=== PATIENT | male | born 1970 | race Caucasian/White ===

== ENCOUNTER 2021-05-17 19:54 | Emergency (ER) | payer SELFPAY ==
[~2021-05-17] VITALS: Ht 170.2 cm; Wt 155.6 kg
[2021-05-17] MEDS ORDERED: FENTANYL CITRATE/PF 100MCG/2 ML INJ IV PRN (20:30)
[2021-05-17] MEDS ORDERED: FENTANYL CITRATE/PF 100MCG/2 ML INJ ONE (20:34)
[2021-05-17] MEDS ORDERED: FENTANYL CITRATE/PF 100MCG/2 ML INJ IJ ONE (20:45)
[2021-05-17] MEDS ORDERED: KETOROLAC TROMETHAMINE 30 MG/ML VIAL IV STA (20:46)
[2021-05-17] MEDS ORDERED: KETOROLAC TROMETHAMINE 30 MG/ML VIAL ONE (20:48)
[2021-05-17] MEDS ORDERED: ULTRAM50 MG PO (22:09)
== END 2021-05-17 22:39 | disposition home or self-care (01) ==
LOC: ER 20:18
DX: M24.412 Recurrent dislocation, left shoulder (principal)
CPT/HCPCS: 73030; J1885; J3010

== ENCOUNTER 2021-06-03 17:41 | Inpatient (IN) | payer SELFPAY ==
[~2021-06-03] VITALS: Ht 170.2 cm; Wt 155.6 kg
[~2021-06-03 17:41] MED LIST: ULTRAM50 MG PO
[2021-06-03 19:25] LABS: BASOPHILS # (AUTO) 0.1 (0.0-0.1); EOSINOPHILS # (AUTO) 0.3 (0.0-0.4); EOSINOPHILS % 2.8 % (0.0-6.0); HEMATOCRIT 39.6 % (38.2-49.6); HEMOGLOBIN 12.7 g/dL (14.0-18.0); LYMPHOCYTES # (AUTO) 1.9 (1.0-3.2); MEAN CORPUSCULAR HEMOGLOBIN 30.6 pg (28-32); MEAN CORPUSCULAR HGB CONC 32.1 g/dL (31-35); MEAN CORPUSCULAR VOLUME 95.4 fL (81-99); MONOCYTES # (AUTO) 0.9 (0.2-0.8); MONOCYTES % 7.8 % (4.4-11.3); NEUTROPHILS # (AUTO) 7.6 (2.1-6.9); NEUTROPHILS % 66.7 % (38.7-80.0); PLATELET COUNT 321 x10e3/uL (140-360); RED BLOOD COUNT 4.15 x10e6/uL (4.3-5.7); RED CELL DISTRIBUTION WIDTH 13.9 % (11.7-14.4)
[2021-06-03 19:49] LABS: ALBUMIN 3.7 g/dL (3.5-5.0); ALBUMIN/GLOBULIN RATIO 0.9 (0.8-2.0); ANION GAP 17.6 mmol/L (8-16); CALCIUM 9.1 mg/dL (8.4-10.2); CREATININE, SERUM 1.11 mg/dL (0.72-1.25); POTASSIUM 4.6 mmol/L (3.5-5.1)
[2021-06-03] MEDS ORDERED: ONDANSETRON HCL INJ 2MG/ML 2ML 2 MG/ML VIAL IV PRN (20:45)
[2021-06-03] MEDS ORDERED: ACETAMINOPHEN 325 MG TAB PO PRN (20:45)
[2021-06-03] MEDS: CEFEPIME 1 GM in SODIUM CHLORIDE 0.9% 50ML 50 ML IV SCH ×2 (22:00→22:15)
[2021-06-03] MEDS: Vancomycin IV 1 GM in SODIUM CHLORIDE 0.9% 250ML 250 ML IV SCH (23:13)
[2021-06-03] MEDS: MORPHINE SULFATE INJ 4 MG/ML INJ 1ML IV PRN (23:13)
[2021-06-04] VITALS (9 sets, daily range): BP systolic 121–165; BP diastolic 52–93
[2021-06-04] MEDS ORDERED: PHENAZOPYRIDINE HCL 100 MG TAB PO PRN (00:15)
[2021-06-04] MEDS ORDERED: BENZONATATE 100 MG CAP PO PRN (00:15)
[2021-06-04] MEDS ORDERED: KETOROLAC TROMETHAMINE 30 MG/ML VIAL IV PRN (00:15)
[2021-06-04] MEDS ORDERED: LIDOCAINE 4% PATCH TP PRN (00:15)
[2021-06-04] MEDS ORDERED: DIPHENHYDRAMINE HCL 25 MG CAP PO PRN (00:15)
[2021-06-04] MEDS ORDERED: SIMETHICONE 80 MG CHEW PO PRN (00:15)
[2021-06-04] MEDS ORDERED: ALBUTEROL/IPRATROPIUM 3 ML NEB NEB PRN (00:15)
[2021-06-04] MEDS ORDERED: MELATONIN 5 MG TABLET PO PRN (00:15)
[2021-06-04] MEDS ORDERED: POTASSIUM CHLORIDE 20 MEQ TAB CR PO PRN (00:15)
[2021-06-04] MEDS ORDERED: DOCUSATE SODIUM 100 MG CAP PO PRN (00:15)
[2021-06-04] MEDS ORDERED: HYDRALAZINE HCL 20 MG/ML VIAL IV PRN (00:15)
[2021-06-04] MEDS ORDERED: DEXTROSE 50% SYRINGE 50 ML IV PRN (00:15)
[2021-06-04] MEDS: SODIUM CHLORIDE 0.9% 1000ML 1,000 ML IV SCH ×2 (01:14→07:47)
[2021-06-04] MEDS: ONDANSETRON HCL INJ 2MG/ML 2ML 2 MG/ML VIAL IV PRN (03:27)
[2021-06-04] MEDS: MORPHINE SULFATE INJ 4 MG/ML INJ 1ML IV PRN ×2 (03:27→07:40)
[2021-06-04] MEDS: ACETAMINOPHEN 325 MG TAB PO PRN ×2 (03:36→17:40)
[2021-06-04] MEDS: CEFEPIME 1 GM in SODIUM CHLORIDE 0.9% 50ML 50 ML IV SCH ×3 (05:19→21:18)
[2021-06-04] MEDS: Vancomycin IV 1 GM in SODIUM CHLORIDE 0.9% 250ML 250 ML IV SCH ×2 (07:00→19:00)
[2021-06-04] MEDS: PANTOPRAZOLE SOD 40 MG TABEC PO SCH (07:30)
[2021-06-04 09:10] LABS: BASOPHILS # (AUTO) 0.2 (0.0-0.1); BASOPHILS % 1.5 % (0.0-1.0); EOSINOPHILS # (AUTO) 0.3 (0.0-0.4); EOSINOPHILS % 3.4 % (0.0-6.0); HEMATOCRIT 38.1 % (38.2-49.6); HEMOGLOBIN 12.2 g/dL (14.0-18.0); LYMPHOCYTES # (AUTO) 1.9 (1.0-3.2); LYMPHOCYTES % 19.6 % (18.0-39.1); MEAN CORPUSCULAR HEMOGLOBIN 30.7 pg (28-32); MEAN CORPUSCULAR VOLUME 95.7 fL (81-99); MONOCYTES % 10.1 % (4.4-11.3); NEUTROPHILS # (AUTO) 5.7 (2.1-6.9); NEUTROPHILS % 57.8 % (38.7-80.0); PLATELET COUNT 299 x10e3/uL (140-360); RED BLOOD COUNT 3.98 x10e6/uL (4.3-5.7); RED CELL DISTRIBUTION WIDTH 13.4 % (11.7-14.4)
[2021-06-04 09:36] LABS: ALBUMIN 3.5 g/dL (3.5-5.0); ANION GAP 12.1 mmol/L (8-16); CALCIUM 8.7 mg/dL (8.4-10.2); POTASSIUM 4.1 mmol/L (3.5-5.1)
[2021-06-04] MEDS ORDERED: PROAIR DIGIHAL90 MCG (12:15)
[2021-06-04] MEDS ORDERED: METHOCARBAMOL750 MG PO (12:25)
[2021-06-04] MEDS ORDERED: TERBINAFINE HC250 MG PO (12:25)
[2021-06-04] MEDS ORDERED: ABILIFY5 MG PO (12:25)
[2021-06-04] MEDS ORDERED: LISINOPRIL10 MG PO (12:25)
[2021-06-04] MEDS ORDERED: MINIPRESS1 MG PO (12:25)
[2021-06-04] MEDS ORDERED: KEPPRA250 MG PO (12:25)
[2021-06-04] MEDS ORDERED: ALBUTEROL SULFATE HFA 8GM INHALATION AEROSOL INH PRN (12:30)
[2021-06-04] MEDS: LISINOPRIL 10 MG TAB PO SCH (13:18)
[2021-06-04] MEDS: TERBINAFINE 250 MG TAB PO SCH (13:18)
[2021-06-04] MEDS: FUROSEMIDE 20 MG TAB PO SCH (13:18)
[2021-06-04] MEDS: KETOROLAC TROMETHAMINE 30 MG/ML VIAL IV SCH ×3 (13:18→23:48)
[2021-06-04] MEDS: ARIPIPRAZOLE 5 MG TABLET PO SCH (13:18)
[2021-06-04] MEDS: ENOXAPARIN SOD INJ 40 MG/0.4 ML SYR SC SCH (17:56)
[2021-06-04] MEDS: LEVETIRACETAM 500 MG TAB PO SCH (17:56)
[2021-06-04] MEDS: PRAZOSIN HCL 1 MG CAP PO SCH (20:39)
[2021-06-05 01:29] VITALS: BP 108/53
[2021-06-05] MEDS ORDERED: SODIUM CHLORIDE 0.9% 250ML 250 ML ONE (03:09)
[2021-06-05 04:09] VITALS: BP 95/52
[2021-06-05 05:14] LABS: BASOPHILS # (AUTO) 0.1 (0.0-0.1); BASOPHILS % 1.2 % (0.0-1.0); EOSINOPHILS # (AUTO) 0.3 (0.0-0.4); EOSINOPHILS % 3.3 % (0.0-6.0); HEMATOCRIT 35.9 % (38.2-49.6); HEMOGLOBIN 11.6 g/dL (14.0-18.0); LYMPHOCYTES # (AUTO) 1.7 (1.0-3.2); LYMPHOCYTES % 19.8 % (18.0-39.1); MEAN CORPUSCULAR HEMOGLOBIN 30.2 pg (28-32); MEAN CORPUSCULAR HGB CONC 32.3 g/dL (31-35); MEAN CORPUSCULAR VOLUME 93.5 fL (81-99); MONOCYTES # (AUTO) 0.8 (0.2-0.8); MONOCYTES % 9.2 % (4.4-11.3); NEUTROPHILS % 57.5 % (38.7-80.0); PLATELET COUNT 276 x10e3/uL (140-360); RED BLOOD COUNT 3.84 x10e6/uL (4.3-5.7)
[2021-06-05] MEDS: CEFEPIME 1 GM in SODIUM CHLORIDE 0.9% 50ML 50 ML IV SCH ×3 (05:20→21:52)
[2021-06-05] MEDS: KETOROLAC TROMETHAMINE 30 MG/ML VIAL IV SCH ×3 (05:20→17:19)
[2021-06-05 05:37] LABS: ANION GAP 11.9 mmol/L (8-16); CALCIUM 8.3 mg/dL (8.4-10.2); CREATININE, SERUM 1.04 mg/dL (0.72-1.25); POTASSIUM 3.9 mmol/L (3.5-5.1)
[2021-06-05] MEDS: Vancomycin IV 1 GM in SODIUM CHLORIDE 0.9% 250ML 250 ML IV SCH ×2 (07:00→19:00)
[2021-06-05] MEDS: LEVETIRACETAM 500 MG TAB PO SCH ×2 (08:35→16:19)
[2021-06-05] MEDS: FUROSEMIDE 20 MG TAB PO SCH (08:35)
[2021-06-05] MEDS: TERBINAFINE 250 MG TAB PO SCH (08:35)
[2021-06-05] MEDS: ARIPIPRAZOLE 5 MG TABLET PO SCH (08:35)
[2021-06-05] MEDS: PANTOPRAZOLE SOD 40 MG TABEC PO SCH (08:35)
[2021-06-05] MEDS: LISINOPRIL 10 MG TAB PO SCH (08:37)
[2021-06-05 08:58] VITALS: BP 140/70
[2021-06-05] MEDS ORDERED: LEVETIRACETAM PO SCH (09:00)
[2021-06-05 11:55] VITALS: BP 137/65
[2021-06-05] MEDS: ONDANSETRON HCL INJ 2MG/ML 2ML 2 MG/ML VIAL IV PRN (14:01)
[2021-06-05] MEDS: MORPHINE SULFATE INJ 4 MG/ML INJ 1ML IV PRN (14:01)
[2021-06-05] MEDS: ENOXAPARIN SOD INJ 40 MG/0.4 ML SYR SC SCH (16:19)
[2021-06-05 19:25] VITALS: BP 144/79
[2021-06-05] MEDS: PRAZOSIN HCL 1 MG CAP PO SCH (20:48)
[2021-06-05 22:00] VITALS: BP 144/79
[2021-06-06] VITALS (8 sets, daily range): BP systolic 118–159; BP diastolic 53–96
[2021-06-06] MEDS: CEFEPIME 1 GM in SODIUM CHLORIDE 0.9% 50ML 50 ML IV SCH ×4 (00:41→22:44)
[2021-06-06] MEDS: ACETAMINOPHEN 325 MG TAB PO PRN ×2 (01:54→20:43)
[2021-06-06] MEDS ORDERED: KETOROLAC TROMETHAMINE 30 MG/ML VIAL ONE (03:04)
[2021-06-06] MEDS: KETOROLAC TROMETHAMINE 30 MG/ML VIAL IV SCH ×5 (03:17→18:00)
[2021-06-06] MEDS: Vancomycin IV 1 GM in SODIUM CHLORIDE 0.9% 250ML 250 ML IV SCH ×2 (06:31→18:00)
[2021-06-06] MEDS: LEVETIRACETAM 500 MG TAB PO SCH ×2 (09:33→17:04)
[2021-06-06] MEDS: ARIPIPRAZOLE 5 MG TABLET PO SCH (09:33)
[2021-06-06] MEDS: PANTOPRAZOLE SOD 40 MG TABEC PO SCH (09:33)
[2021-06-06] MEDS: FUROSEMIDE 20 MG TAB PO SCH (09:33)
[2021-06-06] MEDS: LISINOPRIL 10 MG TAB PO SCH (09:33)
[2021-06-06] MEDS: TERBINAFINE 250 MG TAB PO SCH (09:33)
[2021-06-06] MEDS: ENOXAPARIN SOD INJ 40 MG/0.4 ML SYR SC SCH (17:04)
[2021-06-06] MEDS: ONDANSETRON HCL INJ 2MG/ML 2ML 2 MG/ML VIAL IV PRN (20:43)
[2021-06-06] MEDS: MORPHINE SULFATE INJ 4 MG/ML INJ 1ML IV PRN (20:43)
[2021-06-06] MEDS: PRAZOSIN HCL 1 MG CAP PO SCH (21:04)
[2021-06-07] VITALS: BP 133/61
[2021-06-07] MEDS: CEFEPIME 1 GM in SODIUM CHLORIDE 0.9% 50ML 50 ML IV SCH (05:09)
[2021-06-07] MEDS: KETOROLAC TROMETHAMINE 30 MG/ML VIAL IV SCH ×4 (05:10→12:06)
[2021-06-07 05:14] VITALS: BP 139/80
[2021-06-07 06:50] LABS: ANION GAP 11.8 mmol/L (8-16); CALCIUM 8.3 mg/dL (8.4-10.2); CREATININE, SERUM 1.01 mg/dL (0.72-1.25); POTASSIUM 3.8 mmol/L (3.5-5.1)
[2021-06-07] MEDS: LISINOPRIL 10 MG TAB PO SCH (08:00)
[2021-06-07] MEDS: Vancomycin IV 1 GM in SODIUM CHLORIDE 0.9% 250ML 250 ML IV SCH (08:02)
[2021-06-07] MEDS: PANTOPRAZOLE SOD 40 MG TABEC PO SCH (08:02)
[2021-06-07] MEDS: FUROSEMIDE 20 MG TAB PO SCH (08:03)
[2021-06-07] MEDS: LEVETIRACETAM 500 MG TAB PO SCH (08:03)
[2021-06-07] MEDS: ARIPIPRAZOLE 5 MG TABLET PO SCH (08:03)
[2021-06-07] MEDS: TERBINAFINE 250 MG TAB PO SCH (08:03)
[2021-06-07 08:11] VITALS: BP 137/89
[2021-06-07 08:32] VITALS: BP 137/89
[2021-06-07] MEDS ORDERED: DOXYCYCLINE HY100 MG PO (09:24)
[2021-06-07] MEDS ORDERED: ONDANSETRON HCL 4 MG ORAL DISINTEGRATING TAB PO PRN (11:45)
[2021-06-07 11:51] VITALS: BP 161/90
== END 2021-06-07 14:09 | disposition home or self-care (01) | DRG 603 ==
LOC: ER 18:58 → ERHOLD 21:03 → MED/SURG2 06-04 00:26
PROVIDERS: ADMIT Internal Medicine; ATTEND Internal Medicine
DX: L03.115 Cellulitis of right lower limb (principal); Z68.43 Body mass index [BMI] 50.0-59.9, adult; I10 Essential (primary) hypertension; E66.01 Morbid (severe) obesity due to excess calories; F32.9 Major depressive disorder, single episode, unspecified; F17.220 Nicotine dependence, chewing tobacco, uncomplicated; Z88.4 Allergy status to anesthetic agent; Z88.0 Allergy status to penicillin; E87.8 Other disorders of electrolyte and fluid balance, not elsewhere classified; G40.909 Epilepsy, unspecified, not intractable, without status epilepticus; Z20.822 Contact with and (suspected) exposure to COVID-19
CPT/HCPCS: 36415; 80048; 80053; 80202; 83605; 85025; 85651; 86039; 86140; 86431; 87040; 93970; 93971; 94660; 99284; J0692; J1650; J1885; J2270; J2405; J3370; J7030; J7050; U0002

== ENCOUNTER 2021-07-06 14:39 | Inpatient (IN) | payer SELFPAY ==
[~2021-07-06] VITALS: Ht 175.3 cm; Wt 155.6 kg
[~2021-07-06 14:39] MED LIST changes: +ABILIFY5 MG PO; +DOXYCYCLINE HY100 MG PO; +KEPPRA250 MG PO; +LISINOPRIL10 MG PO; +METHOCARBAMOL750 MG PO; +MINIPRESS1 MG PO; +PROAIR DIGIHAL90 MCG; +TERBINAFINE HC250 MG PO
[2021-07-06] MEDS ORDERED: Vancomycin IV 1 GM in SODIUM CHLORIDE 0.9% 250ML 250 ML IV ONE (15:00)
[2021-07-06] MEDS ORDERED: SODIUM CHLORIDE 0.9% 1000ML 1,000 ML IV SCH (15:00)
[2021-07-06] MEDS ORDERED: PIPERACILLIN/TAZOBACTAM 4.5 GM in SODIUM CHLORIDE 0.9% 100 ML IV ONE (15:00)
[2021-07-06 15:13] LABS: BASOPHILS # (AUTO) 0.1 (0.0-0.1); BASOPHILS % 0.6 % (0.0-1.0); EOSINOPHILS # (AUTO) 0.2 (0.0-0.4); EOSINOPHILS % 1.7 % (0.0-6.0); HEMATOCRIT 38.2 % (38.2-49.6); HEMOGLOBIN 12.4 g/dL (14.0-18.0); LYMPHOCYTES # (AUTO) 1.4 (1.0-3.2); LYMPHOCYTES % 12.3 % (18.0-39.1); MEAN CORPUSCULAR HEMOGLOBIN 30.5 pg (28-32); MEAN CORPUSCULAR HGB CONC 32.5 g/dL (31-35); MEAN CORPUSCULAR VOLUME 94.1 fL (81-99); MONOCYTES # (AUTO) 1.2 (0.2-0.8); MONOCYTES % 10.2 % (4.4-11.3); NEUTROPHILS # (AUTO) 8.3 (2.1-6.9); NEUTROPHILS % 72.9 % (38.7-80.0); PLATELET COUNT 274 x10e3/uL (140-360); RED BLOOD COUNT 4.06 x10e6/uL (4.3-5.7); RED CELL DISTRIBUTION WIDTH 13.9 % (11.7-14.4)
[2021-07-06] MEDS ORDERED: CEFEPIME 2 GM in SODIUM CHLORIDE 0.9% 100 ML IV ONE (15:15)
[2021-07-06] MEDS ORDERED: SODIUM CHLORIDE 0.9% 1000ML 1,000 ML ONE ×2 (15:19→21:48)
[2021-07-06 15:30] LABS: ALBUMIN 2.8 g/dL (3.5-5.0); ALBUMIN/GLOBULIN RATIO 0.8 (0.8-2.0); ANION GAP 13.3 mmol/L (8-16); CALCIUM 8.5 mg/dL (8.4-10.2); CREATININE, SERUM 1.22 mg/dL (0.72-1.25); POTASSIUM 3.3 mmol/L (3.5-5.1)
[2021-07-06] MEDS ORDERED: SODIUM CHLORIDE 0.9% 50ML 50 ML ONE (15:49)
[2021-07-06] MEDS ORDERED: IOPAMIDOL 370 MG/ML 200 ML INFUS..BTL INJ ONE (15:49)
[2021-07-06] MEDS: MORPHINE SULFATE INJ 4 MG/ML INJ 1ML IV PRN (16:35)
[2021-07-06] MEDS ORDERED: KETOROLAC TROMETHAMINE 30 MG/ML VIAL IV STA (17:07)
[2021-07-06 20:00] VITALS: BP 129/96
[2021-07-06] MEDS ORDERED: CEFEPIME 1 GM in SODIUM CHLORIDE 0.9% 50ML 50 ML IV SCH (21:00)
[2021-07-06] MEDS: Vancomycin IV 1 GM in SODIUM CHLORIDE 0.9% 250ML 250 ML IV SCH (22:12)
[2021-07-06] MEDS: MORPHINE SULFATE INJ 2 MG/ML SYR IV PRN (22:22)
[2021-07-07] VITALS (8 sets, daily range): BP systolic 124–153; BP diastolic 72–92
[2021-07-07] MEDS: CLINDAMYCIN 600MG / 50ML 50 ML IV SCH ×5 (01:58→23:41)
[2021-07-07] MEDS: MORPHINE SULFATE INJ 2 MG/ML SYR IV PRN (05:25)
[2021-07-07 06:03] LABS: BASOPHILS # (AUTO) 0.1 (0.0-0.1); BASOPHILS % 0.8 % (0.0-1.0); EOSINOPHILS # (AUTO) 0.2 (0.0-0.4); EOSINOPHILS % 2.1 % (0.0-6.0); HEMATOCRIT 34.6 % (38.2-49.6); HEMOGLOBIN 11.2 g/dL (14.0-18.0); LYMPHOCYTES # (AUTO) 1.5 (1.0-3.2); LYMPHOCYTES % 13.6 % (18.0-39.1); MEAN CORPUSCULAR HGB CONC 32.4 g/dL (31-35); MEAN CORPUSCULAR VOLUME 92.8 fL (81-99); MONOCYTES # (AUTO) 1.2 (0.2-0.8); MONOCYTES % 10.6 % (4.4-11.3); NEUTROPHILS # (AUTO) 7.5 (2.1-6.9); NEUTROPHILS % 68.8 % (38.7-80.0); PLATELET COUNT 263 x10e3/uL (140-360); RED BLOOD COUNT 3.73 x10e6/uL (4.3-5.7); RED CELL DISTRIBUTION WIDTH 13.7 % (11.7-14.4)
[2021-07-07 06:31] LABS: ANION GAP 12.6 mmol/L (8-16); CALCIUM 8.4 mg/dL (8.4-10.2); CREATININE, SERUM 1.08 mg/dL (0.72-1.25); POTASSIUM 3.6 mmol/L (3.5-5.1)
[2021-07-07] MEDS: Vancomycin IV 1 GM in SODIUM CHLORIDE 0.9% 250ML 250 ML IV SCH (08:25)
[2021-07-07] MEDS: HYDROCODONE/APAP 5MG-325MG TAB PO PRN (10:29)
[2021-07-07] MEDS: PENTOXIFYLLINE 400 MG TAB CR PO SCH ×2 (15:08→20:16)
[2021-07-07] MEDS: ENOXAPARIN SOD INJ 40 MG/0.4 ML SYR SC SCH (16:39)
[2021-07-07] MEDS: MORPHINE SULFATE INJ 4 MG/ML INJ 1ML IV PRN (16:39)
[2021-07-08] VITALS (8 sets, daily range): BP systolic 133–177; BP diastolic 71–99
[2021-07-08] MEDS: KETOROLAC TROMETHAMINE 30 MG/ML VIAL IV PRN ×3 (04:57→18:13)
[2021-07-08] MEDS: CLINDAMYCIN 600MG / 50ML 50 ML IV SCH ×4 (05:23→23:48)
[2021-07-08] MEDS: PENTOXIFYLLINE 400 MG TAB CR PO SCH ×3 (08:07→21:09)
[2021-07-08] MEDS: CEFTRIAXONE 2 GM in SODIUM CHLORIDE 0.9% 100 ML IV SCH (08:07)
[2021-07-08] MEDS: HYDROCODONE/APAP 5MG-325MG TAB PO PRN (15:34)
[2021-07-08] MEDS: ENOXAPARIN SOD INJ 40 MG/0.4 ML SYR SC SCH (16:48)
[2021-07-08] MEDS: LEVETIRACETAM 500 MG TAB PO SCH (16:48)
[2021-07-08] MEDS: PRAZOSIN HCL 1 MG CAP PO SCH (21:09)
[2021-07-08] MEDS: MORPHINE SULFATE INJ 2 MG/ML SYR IV PRN (22:35)
[2021-07-09] VITALS (7 sets, daily range): BP systolic 136–161; BP diastolic 72–95
[2021-07-09 04:39] LABS: BASOPHILS # (AUTO) 0.1 (0.0-0.1); EOSINOPHILS # (AUTO) 0.3 (0.0-0.4); EOSINOPHILS % 2.6 % (0.0-6.0); HEMATOCRIT 30.8 % (38.2-49.6); HEMOGLOBIN 9.9 g/dL (14.0-18.0); LYMPHOCYTES # (AUTO) 1.6 (1.0-3.2); LYMPHOCYTES % 16.7 % (18.0-39.1); MEAN CORPUSCULAR HEMOGLOBIN 30.1 pg (28-32); MEAN CORPUSCULAR HGB CONC 32.1 g/dL (31-35); MEAN CORPUSCULAR VOLUME 93.6 fL (81-99); MONOCYTES # (AUTO) 0.8 (0.2-0.8); MONOCYTES % 8.6 % (4.4-11.3); NEUTROPHILS # (AUTO) 5.8 (2.1-6.9); NEUTROPHILS % 58.7 % (38.7-80.0); PLATELET COUNT 269 x10e3/uL (140-360); RED BLOOD COUNT 3.29 x10e6/uL (4.3-5.7); RED CELL DISTRIBUTION WIDTH 13.2 % (11.7-14.4)
[2021-07-09 04:51] LABS: ANION GAP 10.5 mmol/L (8-16); CALCIUM 8.1 mg/dL (8.4-10.2); CREATININE, SERUM 0.86 mg/dL (0.72-1.25); POTASSIUM 3.5 mmol/L (3.5-5.1)
[2021-07-09] MEDS: CLINDAMYCIN 600MG / 50ML 50 ML IV SCH ×3 (05:31→18:00)
[2021-07-09] MEDS: HYDROCODONE/APAP 5MG-325MG TAB PO PRN ×2 (05:48→20:41)
[2021-07-09] MEDS: CEFTRIAXONE 2 GM in SODIUM CHLORIDE 0.9% 100 ML IV SCH (08:35)
[2021-07-09] MEDS: ARIPIPRAZOLE 5 MG TABLET PO SCH (08:35)
[2021-07-09] MEDS: LEVETIRACETAM 500 MG TAB PO SCH ×2 (08:35→17:00)
[2021-07-09] MEDS: LISINOPRIL 10 MG TAB PO SCH (08:35)
[2021-07-09] MEDS: PENTOXIFYLLINE 400 MG TAB CR PO SCH ×3 (08:39→20:41)
[2021-07-09] MEDS: TERBINAFINE 250 MG TAB PO SCH (08:39)
[2021-07-09] MEDS: MORPHINE SULFATE INJ 2 MG/ML SYR IV PRN ×2 (08:52→14:40)
[2021-07-09] MEDS ORDERED: FUROSEMIDE INJ 10 MG/ML 4 ML VIAL IV ONE (09:00)
[2021-07-09] MEDS ORDERED: TRAMADOL HCL 50 MG TAB PO PRN (15:45)
[2021-07-09] MEDS: ENOXAPARIN SOD INJ 40 MG/0.4 ML SYR SC SCH (17:00)
[2021-07-09] MEDS: PRAZOSIN HCL 1 MG CAP PO SCH (20:41)
[2021-07-10] VITALS (9 sets, daily range): BP systolic 120–148; BP diastolic 54–87
[2021-07-10] MEDS: MORPHINE SULFATE INJ 2 MG/ML SYR IV PRN ×3 (01:50→21:39)
[2021-07-10] MEDS: CLINDAMYCIN 600MG / 50ML 50 ML IV SCH (01:50)
[2021-07-10] MEDS ORDERED: CLINDAMYCIN 600MG / 50ML 50 ML IV SCH (08:00)
[2021-07-10] MEDS: LEVETIRACETAM 500 MG TAB PO SCH ×2 (09:00→16:11)
[2021-07-10] MEDS: FUROSEMIDE 40 MG TAB PO SCH (09:00)
[2021-07-10] MEDS: TERBINAFINE 250 MG TAB PO SCH (09:00)
[2021-07-10] MEDS: LISINOPRIL 10 MG TAB PO SCH (09:00)
[2021-07-10] MEDS: PENTOXIFYLLINE 400 MG TAB CR PO SCH ×3 (09:00→21:00)
[2021-07-10] MEDS: ARIPIPRAZOLE 5 MG TABLET PO SCH (09:00)
[2021-07-10] MEDS: CEFTRIAXONE 2 GM in SODIUM CHLORIDE 0.9% 100 ML IV SCH (09:00)
[2021-07-10] MEDS: Vancomycin IV 1 GM in SODIUM CHLORIDE 0.9% 250ML 250 ML IV SCH (14:00)
[2021-07-10] MEDS: HYDROCODONE/APAP 5MG-325MG TAB PO PRN (16:22)
[2021-07-10] MEDS: ENOXAPARIN SOD INJ 40 MG/0.4 ML SYR SC SCH (17:00)
[2021-07-10] MEDS: PRAZOSIN HCL 1 MG CAP PO SCH (21:36)
[2021-07-11] VITALS (7 sets, daily range): BP systolic 111–168; BP diastolic 60–89
[2021-07-11] MEDS: Vancomycin IV 1 GM in SODIUM CHLORIDE 0.9% 250ML 250 ML IV SCH ×2 (01:53→14:10)
[2021-07-11] MEDS: MORPHINE SULFATE INJ 2 MG/ML SYR IV PRN ×3 (08:35→21:20)
[2021-07-11] MEDS: PENTOXIFYLLINE 400 MG TAB CR PO SCH ×3 (08:42→20:57)
[2021-07-11] MEDS: FUROSEMIDE 40 MG TAB PO SCH (08:42)
[2021-07-11] MEDS: TERBINAFINE 250 MG TAB PO SCH (08:42)
[2021-07-11] MEDS: CEFTRIAXONE 2 GM in SODIUM CHLORIDE 0.9% 100 ML IV SCH (08:42)
[2021-07-11] MEDS: LEVETIRACETAM 500 MG TAB PO SCH ×2 (08:42→17:00)
[2021-07-11] MEDS: ARIPIPRAZOLE 5 MG TABLET PO SCH (08:42)
[2021-07-11] MEDS: LISINOPRIL 10 MG TAB PO SCH (08:42)
[2021-07-11] MEDS: ENOXAPARIN SOD INJ 40 MG/0.4 ML SYR SC SCH (17:00)
[2021-07-11] MEDS: PRAZOSIN HCL 1 MG CAP PO SCH (20:57)
[2021-07-12 00:33] VITALS: BP 135/64
[2021-07-12] MEDS: Vancomycin IV 1 GM in SODIUM CHLORIDE 0.9% 250ML 250 ML IV SCH (01:56)
[2021-07-12] MEDS: MORPHINE SULFATE INJ 2 MG/ML SYR IV PRN ×2 (02:10→08:38)
[2021-07-12 05:10] VITALS: BP 133/83
[2021-07-12 07:34] VITALS: BP 137/67
[2021-07-12 07:40] VITALS: BP 137/67
[2021-07-12] MEDS: LEVETIRACETAM 500 MG TAB PO SCH (09:00)
[2021-07-12] MEDS: LISINOPRIL 10 MG TAB PO SCH (09:00)
[2021-07-12] MEDS: ARIPIPRAZOLE 5 MG TABLET PO SCH (09:00)
[2021-07-12] MEDS: FUROSEMIDE 40 MG TAB PO SCH (09:00)
[2021-07-12] MEDS: CEFTRIAXONE 2 GM in SODIUM CHLORIDE 0.9% 100 ML IV SCH (09:00)
[2021-07-12] MEDS: TERBINAFINE 250 MG TAB PO SCH (09:00)
[2021-07-12] MEDS: PENTOXIFYLLINE 400 MG TAB CR PO SCH (09:00)
[2021-07-12 11:24] VITALS: BP 133/73
[2021-07-12] MEDS ORDERED: Vancomycin IV 1.25 GM in SODIUM CHLORIDE 0.9% 250ML 250 ML IV SCH (14:00)
[2021-07-12 15:15] VITALS: BP 135/85
[2021-07-12] MEDS ORDERED: ULTRAM50 MG PO (17:06)
[2021-07-12] MEDS ORDERED: CIPROFLOXACIN500 MG PO (17:07)
[2021-07-12] MEDS ORDERED: DOXYCYCLINE HY100 MG PO (17:08)
== END 2021-07-12 17:50 | disposition home or self-care (01) | DRG 603 ==
LOC: ER 14:42 → ERHOLD 17:12 → MED/SURG3 19:35 → MED/SURG2 07-09 09:04
PROVIDERS: ADMIT Internal Medicine; ATTEND Internal Medicine
DX: L03.115 Cellulitis of right lower limb (principal); Z68.43 Body mass index [BMI] 50.0-59.9, adult; I10 Essential (primary) hypertension; E11.9 Type 2 diabetes mellitus without complications; G40.909 Epilepsy, unspecified, not intractable, without status epilepticus; G47.30 Sleep apnea, unspecified; E66.01 Morbid (severe) obesity due to excess calories; R53.81 Other malaise; I89.0 Lymphedema, not elsewhere classified; Z88.5 Allergy status to narcotic agent; Z88.0 Allergy status to penicillin; Z20.822 Contact with and (suspected) exposure to COVID-19
CPT/HCPCS: 36415; 36569; 71045; 74176; 80048; 80053; 80202; 83605; 85025; 86140; 87040; 93005; 93971; 94660; 99284; J0692; J0696; J1650; J1885; J1940; J2270; J3370; J7030; J7050; Q9967; U0002

== ENCOUNTER 2021-08-11 20:18 | Inpatient (IN) | payer SELFPAY ==
[~2021-08-11] VITALS: Ht 175.3 cm; Wt 159.7 kg
[~2021-08-11 20:18] MED LIST changes: +CIPROFLOXACIN500 MG PO
[2021-08-11] MEDS ORDERED: ACETAMINOPHEN 325 MG TAB PO ONE (20:30)
[2021-08-11] MEDS: LEVOFLOXACIN 750MG/D5W 150ML 150 ML IV SCH (20:48)
[2021-08-11 20:56] LABS: BASOPHILS # (AUTO) 0.1 (0.0-0.1); BASOPHILS % 0.7 % (0.0-1.0); EOSINOPHILS # (AUTO) 0.2 (0.0-0.4); HEMATOCRIT 36.1 % (38.2-49.6); HEMOGLOBIN 11.9 g/dL (14.0-18.0); LYMPHOCYTES # (AUTO) 1.4 (1.0-3.2); LYMPHOCYTES % 9.5 % (18.0-39.1); MEAN CORPUSCULAR HEMOGLOBIN 29.8 pg (28-32); MEAN CORPUSCULAR VOLUME 90.5 fL (81-99); MONOCYTES # (AUTO) 0.9 (0.2-0.8); MONOCYTES % 6.1 % (4.4-11.3); NEUTROPHILS # (AUTO) 11.7 (2.1-6.9); NEUTROPHILS % 77.3 % (38.7-80.0); PLATELET COUNT 347 x10e3/uL (140-360); RED BLOOD COUNT 3.99 x10e6/uL (4.3-5.7); RED CELL DISTRIBUTION WIDTH 14.6 % (11.7-14.4)
[2021-08-11 21:17] LABS: ALBUMIN 2.4 g/dL (3.5-5.0); ALBUMIN/GLOBULIN RATIO 0.5 (0.8-2.0); ANION GAP 15.5 mmol/L (8-16); CALCIUM 8.4 mg/dL (8.4-10.2); CREATININE, SERUM 1.77 mg/dL (0.72-1.25); POTASSIUM 3.5 mmol/L (3.5-5.1)
[2021-08-11 21:24] LABS: CREATINE KINASE MB 0.5 ng/mL (0-5.0)
[2021-08-11 22:00] LABS: BAND NEUTROPHILS % (MANUAL) 9 %; LYMPHOCYTES % (MANUAL) 7 % (19-48); MONOCYTES % (MANUAL) 6 % (3.4-9.0); MYELOCYTES % (MANUAL) 1 % (0-0); NEUTROPHILS % (MANUAL) 77 % (40-74)
[2021-08-11 22:01] LABS: PLATELET ESTIMATE ADEQUATE; PLATELET MORPHOLOGY COMMENT NORMAL
[2021-08-12] VITALS (7 sets, daily range): BP systolic 113–152; BP diastolic 61–76
[2021-08-12] MEDS: Morphine 4mg Syringe 4 MG/ML INJ IV PRN ×5 (01:20→21:10)
[2021-08-12 06:05] LABS: BASOPHILS # (AUTO) 0.1 (0.0-0.1); BASOPHILS % 0.8 % (0.0-1.0); EOSINOPHILS # (AUTO) 0.3 (0.0-0.4); EOSINOPHILS % 1.6 % (0.0-6.0); HEMATOCRIT 34.1 % (38.2-49.6); LYMPHOCYTES # (AUTO) 1.5 (1.0-3.2); LYMPHOCYTES % 9.4 % (18.0-39.1); MEAN CORPUSCULAR HEMOGLOBIN 29.6 pg (28-32); MEAN CORPUSCULAR HGB CONC 32.3 g/dL (31-35); MEAN CORPUSCULAR VOLUME 91.9 fL (81-99); MONOCYTES % 6.3 % (4.4-11.3); NEUTROPHILS # (AUTO) 11.7 (2.1-6.9); NEUTROPHILS % 73.8 % (38.7-80.0); PLATELET COUNT 306 x10e3/uL (140-360); RED BLOOD COUNT 3.71 x10e6/uL (4.3-5.7)
[2021-08-12 06:29] LABS: ALBUMIN 2.3 g/dL (3.5-5.0); ALBUMIN/GLOBULIN RATIO 0.5 (0.8-2.0); ANION GAP 17.8 mmol/L (8-16); CALCIUM 8.4 mg/dL (8.4-10.2); CREATININE, SERUM 1.91 mg/dL (0.72-1.25); POTASSIUM 4.8 mmol/L (3.5-5.1)
[2021-08-12] MEDS: LEVOFLOXACIN 750MG/D5W 150ML 150 ML IV SCH (08:52)
[2021-08-12] MEDS: PIPERACILLIN/TAZOBACTAM 2.25 GM in SODIUM CHLORIDE 0.9% 50ML 50 ML IV SCH ×2 (12:30→20:54)
[2021-08-12] MEDS ORDERED: Vancomycin IV 1 GM in SODIUM CHLORIDE 0.9% 250ML 250 ML IV ONE (13:00)
[2021-08-12] MEDS ORDERED: FUROSEMIDE INJ 10 MG/ML 4 ML VIAL IV ONE (13:00)
[2021-08-12] MEDS ORDERED: SODIUM CHLORIDE 0.9% 250ML 250 ML ONE (13:53)
[2021-08-12] MEDS: PRAZOSIN HCL 1 MG CAP PO SCH (20:50)
[2021-08-12] MEDS: ACETAMINOPHEN 325 MG TAB PO PRN (20:50)
[2021-08-13] VITALS (7 sets, daily range): BP systolic 101–133; BP diastolic 50–74
[2021-08-13] MEDS: ACETAMINOPHEN 325 MG TAB PO PRN (03:51)
[2021-08-13] MEDS: Morphine 4mg Syringe 4 MG/ML INJ IV PRN ×4 (05:02→22:13)
[2021-08-13 05:49] LABS: BASOPHILS # (AUTO) 0.1 (0.0-0.1); BASOPHILS % 0.8 % (0.0-1.0); EOSINOPHILS # (AUTO) 0.1 (0.0-0.4); EOSINOPHILS % 0.8 % (0.0-6.0); HEMATOCRIT 32.7 % (38.2-49.6); HEMOGLOBIN 10.4 g/dL (14.0-18.0); LYMPHOCYTES # (AUTO) 1.6 (1.0-3.2); MEAN CORPUSCULAR HEMOGLOBIN 29.6 pg (28-32); MEAN CORPUSCULAR HGB CONC 31.8 g/dL (31-35); MEAN CORPUSCULAR VOLUME 93.2 fL (81-99); MONOCYTES # (AUTO) 1.7 (0.2-0.8); MONOCYTES % 9.5 % (4.4-11.3); NEUTROPHILS # (AUTO) 11.7 (2.1-6.9); NEUTROPHILS % 66.7 % (38.7-80.0); PLATELET COUNT 300 x10e3/uL (140-360); RED BLOOD COUNT 3.51 x10e6/uL (4.3-5.7); RED CELL DISTRIBUTION WIDTH 15.4 % (11.7-14.4)
[2021-08-13 06:13] LABS: ANION GAP 15.6 mmol/L (8-16); CALCIUM 8.5 mg/dL (8.4-10.2); CREATININE, SERUM 1.63 mg/dL (0.72-1.25); POTASSIUM 3.6 mmol/L (3.5-5.1)
[2021-08-13] MEDS: LEVOFLOXACIN 750MG/D5W 150ML 150 ML IV SCH (09:50)
[2021-08-13] MEDS: ONDANSETRON HCL INJ 2MG/ML 2ML 2 MG/ML VIAL IV PRN ×3 (09:50→22:13)
[2021-08-13 10:58] LABS: ABG HCO3 26 mmol/L (22-26); ABG PCO2 47 mmHg (35-45); ABG PH 7.35 (7.35-7.45); ABG PO2 83 mmHg (80-105); ABG TCO2 27
[2021-08-13] MEDS: PIPERACILLIN/TAZOBACTAM 2.25 GM in SODIUM CHLORIDE 0.9% 50ML 50 ML IV SCH ×2 (11:31→22:13)
[2021-08-13] MEDS: CLINDAMYCIN 600MG / 50ML 50 ML IV SCH (17:14)
[2021-08-13] MEDS: FUROSEMIDE INJ 10 MG/ML 4 ML VIAL IV SCH (17:14)
[2021-08-13] MEDS: CLOTRIMAZOLE 1% CR 15 GM TOP SCH (17:14)
[2021-08-13] MEDS: ENOXAPARIN SOD INJ 40 MG/0.4 ML SYR SC SCH (17:14)
[2021-08-13] MEDS: SODIUM BICARBONATE 650 MG TAB PO SCH (17:14)
[2021-08-13 18:04] LABS: CLARITY,URINE CLEAR (CLEAR); COLOR,URINE YELLOW (YELLOW); LEUKOCYTE ESTERASE ,URINE NEGATIVE (NEGATIVE); NITRITE,URINE NEGATIVE (NEGATIVE)
[2021-08-13 18:05] LABS: KETONES,URINE NEGATIVE (NEGATIVE); PROTEIN,URINE DIPSTICK 2+ (NEGATIVE); URINE UROBILINOGEN 0.2 mg/dL (0.2 - 1)
[2021-08-13 18:12] LABS: BACTERIA,URINE MANY /HPF; EPITHELIAL CELLS,URINE FEW /LPF; HYALINE CASTS 0-1 (0-1)
[2021-08-13 18:43] LABS: TOTAL PROTEIN, URINE 60.3 mg/dL (1-14)
[2021-08-13 19:39] LABS: CREATININE,URINE RANDOM 141.33 mg/dL (63-166)
[2021-08-13 19:41] LABS: POTASSIUM,URINE 36.6 mmol/L
[2021-08-13] MEDS: PRAZOSIN HCL 1 MG CAP PO SCH (22:13)
[2021-08-14] VITALS (8 sets, daily range): BP systolic 94–131; BP diastolic 62–78
[2021-08-14] MEDS: CLINDAMYCIN 600MG / 50ML 50 ML IV SCH ×3 (00:32→12:53)
[2021-08-14] MEDS: TRAMADOL HCL 50 MG TAB PO PRN ×2 (00:42→20:31)
[2021-08-14] MEDS: ACETAMINOPHEN 325 MG TAB PO PRN ×3 (01:08→20:31)
[2021-08-14] MEDS: Morphine 4mg Syringe 4 MG/ML INJ IV PRN ×4 (02:15→23:14)
[2021-08-14] MEDS: ONDANSETRON HCL INJ 2MG/ML 2ML 2 MG/ML VIAL IV PRN ×2 (02:15→23:14)
[2021-08-14 05:02] LABS: CALCIUM IONIZED 1.1 mmol/L (1.09-1.30)
[2021-08-14 05:04] LABS: BASOPHILS # (AUTO) 0.1 (0.0-0.1); BASOPHILS % 0.3 % (0.0-1.0); EOSINOPHILS # (AUTO) 0.3 (0.0-0.4); EOSINOPHILS % 1.1 % (0.0-6.0); HEMATOCRIT 32.1 % (38.2-49.6); HEMOGLOBIN 10.2 g/dL (14.0-18.0); LYMPHOCYTES # (AUTO) 1.6 (1.0-3.2); LYMPHOCYTES % 7.1 % (18.0-39.1); MEAN CORPUSCULAR HEMOGLOBIN 29.5 pg (28-32); MEAN CORPUSCULAR HGB CONC 31.8 g/dL (31-35); MEAN CORPUSCULAR VOLUME 92.8 fL (81-99); MONOCYTES # (AUTO) 1.7 (0.2-0.8); MONOCYTES % 7.4 % (4.4-11.3); NEUTROPHILS # (AUTO) 15.5 (2.1-6.9); NEUTROPHILS % 67.7 % (38.7-80.0); PLATELET COUNT 328 x10e3/uL (140-360); RED BLOOD COUNT 3.46 x10e6/uL (4.3-5.7)
[2021-08-14] MEDS: FUROSEMIDE INJ 10 MG/ML 4 ML VIAL IV SCH ×2 (05:27→17:26)
[2021-08-14 05:46] LABS: ANION GAP 16.9 mmol/L (8-16); CALCIUM 8.6 mg/dL (8.4-10.2); CREATININE, SERUM 1.77 mg/dL (0.72-1.25); POTASSIUM 3.9 mmol/L (3.5-5.1)
[2021-08-14 05:51] LABS: MAGNESIUM 2.1 MG/DL (1.3-2.1); PHOSPHORUS 3.8 MG/DL (2.3-4.7)
[2021-08-14 08:19] LABS: BAND NEUTROPHILS % (MANUAL) 4 %; EOSINOPHILS % (MANUAL) 3 % (0-7); LYMPHOCYTES % (MANUAL) 5 % (19-48); METAMYELOCYTES % (MANUAL) 3 % (0-0); MONOCYTES % (MANUAL) 6 % (3.4-9.0); MYELOCYTES % (MANUAL) 3 % (0-0); NEUTROPHILS % (MANUAL) 74 % (40-74); PROMYELOCYTES % (MANUAL) 2 % (0-0)
[2021-08-14 08:20] LABS: PLATELET ESTIMATE ADEQUATE; PLATELET MORPHOLOGY COMMENT NORMAL; RBC MORPHOLOGY COMMENT NORMAL
[2021-08-14] MEDS: SODIUM BICARBONATE 650 MG TAB PO SCH ×2 (09:34→17:26)
[2021-08-14] MEDS: CLOTRIMAZOLE 1% CR 15 GM TOP SCH ×2 (10:01→17:19)
[2021-08-14] MEDS: PIPERACILLIN/TAZOBACTAM 2.25 GM in SODIUM CHLORIDE 0.9% 50ML 50 ML IV SCH (10:01)
[2021-08-14] MEDS: CEFEPIME 2 GM in SODIUM CHLORIDE 0.9% 100 ML IV SCH (14:47)
[2021-08-14] MEDS: ENOXAPARIN SOD INJ 40 MG/0.4 ML SYR SC SCH (17:26)
[2021-08-14] MEDS: LINEZOLID 600 MG/D5W 300ML 300 ML IV SCH (17:26)
[2021-08-15] VITALS (7 sets, daily range): BP systolic 107–134; BP diastolic 57–78
[2021-08-15] MEDS: LINEZOLID 600 MG/D5W 300ML 300 ML IV SCH ×2 (02:12→15:27)
[2021-08-15] MEDS: TRAMADOL HCL 50 MG TAB PO PRN ×2 (02:13→23:00)
[2021-08-15] MEDS: FUROSEMIDE INJ 10 MG/ML 4 ML VIAL IV SCH ×2 (06:21→16:28)
[2021-08-15] MEDS: ACETAMINOPHEN 325 MG TAB PO PRN ×2 (06:37→16:28)
[2021-08-15] MEDS: ONDANSETRON HCL INJ 2MG/ML 2ML 2 MG/ML VIAL IV PRN ×2 (07:58→18:08)
[2021-08-15] MEDS: SODIUM BICARBONATE 650 MG TAB PO SCH ×2 (07:58→16:28)
[2021-08-15] MEDS: CLOTRIMAZOLE 1% CR 15 GM TOP SCH ×2 (07:58→16:28)
[2021-08-15] MEDS: Morphine 4mg Syringe 4 MG/ML INJ IV PRN ×2 (07:58→18:08)
[2021-08-15 10:58] LABS: BASOPHILS # (AUTO) 0.1 (0.0-0.1); BASOPHILS % 0.2 % (0.0-1.0); EOSINOPHILS # (AUTO) 0.1 (0.0-0.4); EOSINOPHILS % 0.4 % (0.0-6.0); LYMPHOCYTES # (AUTO) 1.8 (1.0-3.2); LYMPHOCYTES % 6.2 % (18.0-39.1); MEAN CORPUSCULAR HEMOGLOBIN 29.5 pg (28-32); MEAN CORPUSCULAR HGB CONC 32.3 g/dL (31-35); MEAN CORPUSCULAR VOLUME 91.4 fL (81-99); MONOCYTES # (AUTO) 2.2 (0.2-0.8); MONOCYTES % 7.6 % (4.4-11.3); NEUTROPHILS # (AUTO) 20.8 (2.1-6.9); PLATELET COUNT 394 x10e3/uL (140-360); RED BLOOD COUNT 3.39 x10e6/uL (4.3-5.7); RED CELL DISTRIBUTION WIDTH 14.8 % (11.7-14.4)
[2021-08-15 12:12] LABS: BAND NEUTROPHILS % (MANUAL) 1 %; EOSINOPHILS % (MANUAL) 1 % (0-7); LYMPHOCYTES % (MANUAL) 6 % (19-48); METAMYELOCYTES % (MANUAL) 2 % (0-0); MONOCYTES % (MANUAL) 5 % (3.4-9.0); MYELOCYTES % (MANUAL) 1 % (0-0); NEUTROPHILS % (MANUAL) 84 % (40-74); PLATELET ESTIMATE ADEQUATE; PLATELET MORPHOLOGY COMMENT RARE EDTA CLUMPING; RBC MORPHOLOGY COMMENT NORMAL
[2021-08-15] MEDS: CEFEPIME 2 GM in SODIUM CHLORIDE 0.9% 100 ML IV SCH (14:43)
[2021-08-15] MEDS: ENOXAPARIN SOD INJ 40 MG/0.4 ML SYR SC SCH (16:28)
[2021-08-16] VITALS (7 sets, daily range): BP systolic 92–139; BP diastolic 55–84
[2021-08-16] MEDS: LINEZOLID 600 MG/D5W 300ML 300 ML IV SCH ×2 (02:33→15:00)
[2021-08-16] MEDS: ACETAMINOPHEN 325 MG TAB PO PRN (03:43)
[2021-08-16] MEDS: Morphine 4mg Syringe 4 MG/ML INJ IV PRN ×3 (03:43→17:53)
[2021-08-16] MEDS: ONDANSETRON HCL INJ 2MG/ML 2ML 2 MG/ML VIAL IV PRN ×3 (03:43→17:53)
[2021-08-16] MEDS: FUROSEMIDE INJ 10 MG/ML 4 ML VIAL IV SCH ×2 (04:53→16:46)
[2021-08-16 06:02] LABS: BASOPHILS # (AUTO) 0.1 (0.0-0.1); BASOPHILS % 0.2 % (0.0-1.0); EOSINOPHILS # (AUTO) 0.1 (0.0-0.4); EOSINOPHILS % 0.3 % (0.0-6.0); HEMATOCRIT 30.9 % (38.2-49.6); HEMOGLOBIN 9.9 g/dL (14.0-18.0); LYMPHOCYTES % 6.5 % (18.0-39.1); MEAN CORPUSCULAR HEMOGLOBIN 29.7 pg (28-32); MEAN CORPUSCULAR VOLUME 92.8 fL (81-99); MONOCYTES # (AUTO) 2.5 (0.2-0.8); MONOCYTES % 8.1 % (4.4-11.3); NEUTROPHILS # (AUTO) 22.1 (2.1-6.9); NEUTROPHILS % 70.6 % (38.7-80.0); PLATELET COUNT 428 x10e3/uL (140-360); RED BLOOD COUNT 3.33 x10e6/uL (4.3-5.7); RED CELL DISTRIBUTION WIDTH 14.6 % (11.7-14.4)
[2021-08-16 07:01] LABS: ANION GAP 15.6 mmol/L (8-16); CALCIUM 8.3 mg/dL (8.4-10.2); CREATININE, SERUM 1.2 mg/dL (0.72-1.25); POTASSIUM 3.6 mmol/L (3.5-5.1)
[2021-08-16 07:03] LABS: MAGNESIUM 2.2 MG/DL (1.3-2.1); PHOSPHORUS 3.1 MG/DL (2.3-4.7)
[2021-08-16 07:18] LABS: CALCIUM IONIZED 1.1 mmol/L (1.09-1.30)
[2021-08-16 09:06] LABS: BAND NEUTROPHILS % (MANUAL) 1 %; EOSINOPHILS % (MANUAL) 1 % (0-7); LYMPHOCYTES % (MANUAL) 6 % (19-48); METAMYELOCYTES % (MANUAL) 1 % (0-0); MONOCYTES % (MANUAL) 6 % (3.4-9.0); MYELOCYTES % (MANUAL) 1 % (0-0); NEUTROPHILS % (MANUAL) 84 % (40-74); PLATELET ESTIMATE ADEQUATE; PLATELET MORPHOLOGY COMMENT NORMAL; RBC MORPHOLOGY COMMENT NORMAL
[2021-08-16 09:07] LABS: POLYCHROMASIA FEW
[2021-08-16] MEDS: SODIUM BICARBONATE 650 MG TAB PO SCH (09:33)
[2021-08-16] MEDS: CLOTRIMAZOLE 1% CR 15 GM TOP SCH ×2 (10:40→16:35)
[2021-08-16] MEDS ORDERED: IOPAMIDOL 370 MG/ML 200 ML INFUS..BTL INJ ONE (11:31)
[2021-08-16] MEDS ORDERED: SODIUM CHLORIDE 0.9% 50ML 50 ML ONE (11:31)
[2021-08-16] MEDS: CLINDAMYCIN PHOS 900MG/ 50ML 50 ML IV SCH ×2 (13:08→16:46)
[2021-08-16] MEDS: CEFEPIME 2 GM in SODIUM CHLORIDE 0.9% 100 ML IV SCH (14:00)
[2021-08-16] MEDS: TRAMADOL HCL 50 MG TAB PO PRN (16:26)
[2021-08-16] MEDS: ENOXAPARIN SOD INJ 40 MG/0.4 ML SYR SC SCH (16:34)
[2021-08-16] MEDS: MAGNESIUM OXIDE 400 MG TAB PO SCH (18:16)
[2021-08-16] MEDS: ACETAZOLAMIDE 250 MG TAB PO SCH (18:16)
[2021-08-17] VITALS (8 sets, daily range): BP systolic 114–140; BP diastolic 58–82
[2021-08-17] MEDS: LINEZOLID 600 MG/D5W 300ML 300 ML IV SCH ×2 (02:48→16:38)
[2021-08-17] MEDS: CLINDAMYCIN PHOS 900MG/ 50ML 50 ML IV SCH ×5 (05:06→23:58)
[2021-08-17] MEDS: FUROSEMIDE INJ 10 MG/ML 4 ML VIAL IV SCH ×2 (05:07→16:38)
[2021-08-17 06:43] LABS: BASOPHILS # (AUTO) 0.1 (0.0-0.1); BASOPHILS % 0.3 % (0.0-1.0); EOSINOPHILS # (AUTO) 0.2 (0.0-0.4); EOSINOPHILS % 0.7 % (0.0-6.0); HEMATOCRIT 31.8 % (38.2-49.6); HEMOGLOBIN 9.8 g/dL (14.0-18.0); LYMPHOCYTES # (AUTO) 1.9 (1.0-3.2); LYMPHOCYTES % 6.9 % (18.0-39.1); MEAN CORPUSCULAR HEMOGLOBIN 29.3 pg (28-32); MEAN CORPUSCULAR HGB CONC 30.8 g/dL (31-35); MEAN CORPUSCULAR VOLUME 94.9 fL (81-99); MONOCYTES # (AUTO) 2.3 (0.2-0.8); MONOCYTES % 8.7 % (4.4-11.3); NEUTROPHILS # (AUTO) 18.3 (2.1-6.9); PLATELET COUNT 401 x10e3/uL (140-360); RED BLOOD COUNT 3.35 x10e6/uL (4.3-5.7); RED CELL DISTRIBUTION WIDTH 14.6 % (11.7-14.4)
[2021-08-17 07:08] LABS: ALBUMIN 1.9 g/dL (3.5-5.0); ALBUMIN/GLOBULIN RATIO 0.3 (0.8-2.0); ANION GAP 11.7 mmol/L (8-16); CALCIUM 8.8 mg/dL (8.4-10.2); CREATININE, SERUM 1.22 mg/dL (0.72-1.25); POTASSIUM 3.7 mmol/L (3.5-5.1)
[2021-08-17] MEDS: MAGNESIUM OXIDE 400 MG TAB PO SCH (08:21)
[2021-08-17] MEDS: ACETAZOLAMIDE 250 MG TAB PO SCH ×2 (08:21→16:38)
[2021-08-17] MEDS: Morphine 4mg Syringe 4 MG/ML INJ IV PRN ×4 (08:22→23:58)
[2021-08-17] MEDS: CLOTRIMAZOLE 1% CR 15 GM TOP SCH ×2 (10:39→16:38)
[2021-08-17 11:40] LABS: EOSINOPHILS % (MANUAL) 1 % (0-7); LYMPHOCYTES % (MANUAL) 10 % (19-48); METAMYELOCYTES % (MANUAL) 1 % (0-0); MONOCYTES % (MANUAL) 3 % (3.4-9.0); MYELOCYTES % (MANUAL) 2 % (0-0); NEUTROPHILS % (MANUAL) 82 % (40-74)
[2021-08-17 11:42] LABS: PLATELET ESTIMATE ADEQUATE; PLATELET MORPHOLOGY COMMENT NORMAL; RBC MORPHOLOGY COMMENT NORMAL
[2021-08-17] MEDS: CEFEPIME 2 GM in SODIUM CHLORIDE 0.9% 100 ML IV SCH ×2 (15:18→20:40)
[2021-08-17] MEDS: ENOXAPARIN SOD INJ 40 MG/0.4 ML SYR SC SCH (16:38)
[2021-08-17] MEDS: MUPIROCIN 2% OINT 22 GM TUBE TOP SCH (17:00)
[2021-08-18] VITALS (8 sets, daily range): BP systolic 111–127; BP diastolic 58–74
[2021-08-18] MEDS: LINEZOLID 600 MG/D5W 300ML 300 ML IV SCH ×2 (02:46→17:01)
[2021-08-18] MEDS: CLINDAMYCIN PHOS 900MG/ 50ML 50 ML IV SCH ×4 (04:56→23:53)
[2021-08-18] MEDS: FUROSEMIDE INJ 10 MG/ML 4 ML VIAL IV SCH ×2 (04:56→17:02)
[2021-08-18] MEDS: Morphine 4mg Syringe 4 MG/ML INJ IV PRN ×4 (05:05→17:25)
[2021-08-18] MEDS: CEFEPIME 2 GM in SODIUM CHLORIDE 0.9% 100 ML IV SCH ×3 (05:53→22:23)
[2021-08-18] MEDS: MUPIROCIN 2% OINT 22 GM TUBE TOP SCH ×2 (09:11→17:01)
[2021-08-18] MEDS: CLOTRIMAZOLE 1% CR 15 GM TOP SCH ×2 (09:11→17:01)
[2021-08-18] MEDS: MAGNESIUM OXIDE 400 MG TAB PO SCH (09:11)
[2021-08-18] MEDS: ACETAZOLAMIDE 250 MG TAB PO SCH ×2 (09:11→17:01)
[2021-08-18] MEDS: TRAMADOL HCL 50 MG TAB PO PRN (10:55)
[2021-08-18] MEDS ORDERED: ALTEPLASE RECOMBINANT 2 MG/2 ML VIAL IV ONE (11:15)
[2021-08-18] MEDS ORDERED: WATER STERILE 10 ML VIAL INJ PRN (11:30)
[2021-08-18] MEDS: ENOXAPARIN SOD INJ 40 MG/0.4 ML SYR SC SCH (17:01)
[2021-08-19] VITALS (8 sets, daily range): BP systolic 96–133; BP diastolic 58–82
[2021-08-19] MEDS: TRAMADOL HCL 50 MG TAB PO PRN (00:12)
[2021-08-19] MEDS: LINEZOLID 600 MG/D5W 300ML 300 ML IV SCH ×2 (02:14→14:40)
[2021-08-19 05:02] LABS: BASOPHILS # (AUTO) 0.1 (0.0-0.1); BASOPHILS % 0.6 % (0.0-1.0); EOSINOPHILS # (AUTO) 0.1 (0.0-0.4); EOSINOPHILS % 0.3 % (0.0-6.0); HEMATOCRIT 32.8 % (38.2-49.6); LYMPHOCYTES % 9.4 % (18.0-39.1); MEAN CORPUSCULAR HEMOGLOBIN 28.6 pg (28-32); MEAN CORPUSCULAR HGB CONC 30.5 g/dL (31-35); MEAN CORPUSCULAR VOLUME 93.7 fL (81-99); MONOCYTES # (AUTO) 1.9 (0.2-0.8); NEUTROPHILS # (AUTO) 13.6 (2.1-6.9); NEUTROPHILS % 64.7 % (38.7-80.0); PLATELET COUNT 559 x10e3/uL (140-360); RED CELL DISTRIBUTION WIDTH 14.1 % (11.7-14.4)
[2021-08-19 05:19] LABS: ANION GAP 14.7 mmol/L (8-16); CALCIUM 8.6 mg/dL (8.4-10.2); CREATININE, SERUM 1.08 mg/dL (0.72-1.25); POTASSIUM 3.7 mmol/L (3.5-5.1)
[2021-08-19] MEDS: FUROSEMIDE INJ 10 MG/ML 4 ML VIAL IV SCH ×2 (05:26→17:32)
[2021-08-19] MEDS: CLINDAMYCIN PHOS 900MG/ 50ML 50 ML IV SCH ×3 (05:28→17:32)
[2021-08-19] MEDS ORDERED: SODIUM CHLORIDE 0.9% 250ML 250 ML ONE (05:49)
[2021-08-19] MEDS: CEFEPIME 2 GM in SODIUM CHLORIDE 0.9% 100 ML IV SCH ×3 (06:08→21:24)
[2021-08-19] MEDS: ACETAZOLAMIDE 250 MG TAB PO SCH ×2 (09:09→16:16)
[2021-08-19] MEDS: MUPIROCIN 2% OINT 22 GM TUBE TOP SCH ×2 (09:10→16:16)
[2021-08-19] MEDS: MAGNESIUM OXIDE 400 MG TAB PO SCH (09:10)
[2021-08-19] MEDS: CLOTRIMAZOLE 1% CR 15 GM TOP SCH ×2 (09:10→16:16)
[2021-08-19] MEDS: Morphine 4mg Syringe 4 MG/ML INJ IV PRN ×4 (09:11→21:15)
[2021-08-19] MEDS: ACETAMINOPHEN 325 MG TAB PO PRN (10:57)
[2021-08-19] MEDS: ENOXAPARIN SOD INJ 40 MG/0.4 ML SYR SC SCH (16:16)
[2021-08-19] MEDS: BISACODYL 5 MG TAB EC PO PRN (16:16)
[2021-08-20] VITALS (10 sets, daily range): BP systolic 99–144; BP diastolic 57–85
[2021-08-20] MEDS: CLINDAMYCIN PHOS 900MG/ 50ML 50 ML IV SCH ×5 (00:58→23:49)
[2021-08-20] MEDS: Morphine 4mg Syringe 4 MG/ML INJ IV PRN ×6 (01:20→23:35)
[2021-08-20] MEDS: ACETAMINOPHEN 325 MG TAB PO PRN (01:20)
[2021-08-20] MEDS: LINEZOLID 600 MG/D5W 300ML 300 ML IV SCH ×2 (03:10→16:25)
[2021-08-20] MEDS: FUROSEMIDE INJ 10 MG/ML 4 ML VIAL IV SCH ×2 (06:23→16:41)
[2021-08-20] MEDS: CEFEPIME 2 GM in SODIUM CHLORIDE 0.9% 100 ML IV SCH ×3 (06:23→22:00)
[2021-08-20] MEDS: ACETAZOLAMIDE 250 MG TAB PO SCH ×2 (09:01→16:25)
[2021-08-20] MEDS: MUPIROCIN 2% OINT 22 GM TUBE TOP SCH ×2 (09:01→14:47)
[2021-08-20] MEDS: CLOTRIMAZOLE 1% CR 15 GM TOP SCH (09:01)
[2021-08-20] MEDS ORDERED: POVIDONE IODINE 0.05% 0.05 % ML PO ONE (12:47)
[2021-08-20] MEDS ORDERED: DEXAMETHASONE SOD PHOS INJ 4 MG/ML SDV ONE (12:47)
[2021-08-20] MEDS ORDERED: ONDANSETRON HCL INJ 2MG/ML 2ML 2 MG/ML VIAL ONE (12:47)
[2021-08-20] MEDS ORDERED: LIDOCAINE HCL 2% LOCAL INJ 5 ML SDV VIAL INJ ONE (12:47)
[2021-08-20] MEDS ORDERED: PROPOFOL IV EMULSION 10 MG/ML 20 ML VIAL ONE (12:47)
[2021-08-20] MEDS ORDERED: SEVOFLURANE INHAL SOLN 250 ML PEN BTL ONE (12:47)
[2021-08-20] MEDS ORDERED: MIDAZOLAM HCL 2 MG/2 ML VIAL ONE (13:59)
[2021-08-20] MEDS ORDERED: FENTANYL CITRATE/PF 100MCG/2 ML INJ ONE (13:59)
[2021-08-20] MEDS: ONDANSETRON HCL INJ 2MG/ML 2ML 2 MG/ML VIAL IV PRN ×2 (19:56→23:36)
[2021-08-21] VITALS (8 sets, daily range): BP systolic 106–135; BP diastolic 54–74
[2021-08-21] MEDS: LINEZOLID 600 MG/D5W 300ML 300 ML IV SCH ×2 (02:10→15:19)
[2021-08-21] MEDS: CLINDAMYCIN PHOS 900MG/ 50ML 50 ML IV SCH ×3 (05:11→18:12)
[2021-08-21] MEDS: FUROSEMIDE INJ 10 MG/ML 4 ML VIAL IV SCH (05:11)
[2021-08-21] MEDS: CEFEPIME 2 GM in SODIUM CHLORIDE 0.9% 100 ML IV SCH ×3 (05:11→22:00)
[2021-08-21] MEDS: MUPIROCIN 2% OINT 22 GM TUBE TOP SCH ×2 (07:24→15:46)
[2021-08-21] MEDS: ACETAZOLAMIDE 250 MG TAB PO SCH (07:24)
[2021-08-21 07:33] LABS: BASOPHILS # (AUTO) 0.1 (0.0-0.1); BASOPHILS % 0.4 % (0.0-1.0); EOSINOPHILS # (AUTO) 0.1 (0.0-0.4); EOSINOPHILS % 0.2 % (0.0-6.0); HEMOGLOBIN 10.2 g/dL (14.0-18.0); LYMPHOCYTES # (AUTO) 2.2 (1.0-3.2); LYMPHOCYTES % 10.7 % (18.0-39.1); MEAN CORPUSCULAR HGB CONC 30.9 g/dL (31-35); MEAN CORPUSCULAR VOLUME 93.8 fL (81-99); MONOCYTES # (AUTO) 1.9 (0.2-0.8); MONOCYTES % 9.3 % (4.4-11.3); NEUTROPHILS # (AUTO) 13.6 (2.1-6.9); PLATELET COUNT 582 x10e3/uL (140-360); RED BLOOD COUNT 3.52 x10e6/uL (4.3-5.7); RED CELL DISTRIBUTION WIDTH 14.1 % (11.7-14.4)
[2021-08-21] MEDS: Morphine 4mg Syringe 4 MG/ML INJ IV PRN ×4 (07:37→19:01)
[2021-08-21 08:44] LABS: ANION GAP 15.5 mmol/L (8-16); CALCIUM 9.3 mg/dL (8.4-10.2); CREATININE, SERUM 1.26 mg/dL (0.72-1.25); POTASSIUM 3.5 mmol/L (3.5-5.1)
[2021-08-21 11:19] LABS: BAND NEUTROPHILS % (MANUAL) 2 %; LYMPHOCYTES % (MANUAL) 9 % (19-48); METAMYELOCYTES % (MANUAL) 3 % (0-0); MONOCYTES % (MANUAL) 7 % (3.4-9.0); MYELOCYTES % (MANUAL) 1 % (0-0); NEUTROPHILS % (MANUAL) 78 % (40-74)
[2021-08-21 11:20] LABS: HYPOCHROMASIA SLIGHT; POLYCHROMASIA FEW
[2021-08-21 11:22] LABS: PLATELET ESTIMATE MODERATELY INCREASED; PLATELET MORPHOLOGY COMMENT NORMAL
[2021-08-21 15:16] LABS: MAGNESIUM 2.5 MG/DL (1.3-2.1)
[2021-08-22] VITALS: BP 136/65
[2021-08-22] MEDS: LINEZOLID 600 MG/D5W 300ML 300 ML IV SCH ×2 (03:00→15:12)
[2021-08-22 04:45] VITALS: BP 110/63
[2021-08-22] MEDS: CEFEPIME 2 GM in SODIUM CHLORIDE 0.9% 100 ML IV SCH ×3 (05:01→21:13)
[2021-08-22] MEDS: CLINDAMYCIN PHOS 900MG/ 50ML 50 ML IV SCH ×5 (05:01→23:55)
[2021-08-22 06:53] LABS: CALCIUM IONIZED 1.1 mmol/L (1.09-1.30)
[2021-08-22 07:10] LABS: ANION GAP 14.9 mmol/L (8-16); CALCIUM 9.2 mg/dL (8.4-10.2); CREATININE, SERUM 1.23 mg/dL (0.72-1.25); POTASSIUM 3.9 mmol/L (3.5-5.1)
[2021-08-22] MEDS: Morphine 4mg Syringe 4 MG/ML INJ IV PRN ×3 (07:36→21:13)
[2021-08-22] MEDS: ONDANSETRON HCL INJ 2MG/ML 2ML 2 MG/ML VIAL IV PRN ×2 (07:36→11:32)
[2021-08-22 07:43] VITALS: BP 122/75
[2021-08-22 08:07] VITALS: BP 122/75
[2021-08-22] MEDS: MUPIROCIN 2% OINT 22 GM TUBE TOP SCH ×2 (09:47→17:14)
[2021-08-22 20:00] VITALS: BP 128/71
[2021-08-22 20:30] VITALS: BP 128/71
[2021-08-23] VITALS: BP 140/74
[2021-08-23] MEDS: Morphine 4mg Syringe 4 MG/ML INJ IV PRN ×3 (01:46→21:18)
[2021-08-23] MEDS: LINEZOLID 600 MG/D5W 300ML 300 ML IV SCH ×2 (01:46→15:11)
[2021-08-23 04:00] VITALS: BP 119/61
[2021-08-23] MEDS: CLINDAMYCIN PHOS 900MG/ 50ML 50 ML IV SCH ×3 (05:25→17:17)
[2021-08-23] MEDS: CEFEPIME 2 GM in SODIUM CHLORIDE 0.9% 100 ML IV SCH ×3 (05:26→21:18)
[2021-08-23] MEDS: MUPIROCIN 2% OINT 22 GM TUBE TOP SCH ×2 (09:00→17:17)
[2021-08-23 09:02] VITALS: BP 119/61
[2021-08-23 11:56] LABS: BASOPHILS # (AUTO) 0.1 (0.0-0.1); BASOPHILS % 0.8 % (0.0-1.0); EOSINOPHILS # (AUTO) 0.1 (0.0-0.4); EOSINOPHILS % 0.7 % (0.0-6.0); HEMATOCRIT 37.4 % (38.2-49.6); LYMPHOCYTES # (AUTO) 2.2 (1.0-3.2); LYMPHOCYTES % 15.8 % (18.0-39.1); MEAN CORPUSCULAR HEMOGLOBIN 28.4 pg (28-32); MEAN CORPUSCULAR HGB CONC 29.4 g/dL (31-35); MEAN CORPUSCULAR VOLUME 96.6 fL (81-99); MONOCYTES # (AUTO) 1.5 (0.2-0.8); MONOCYTES % 11.1 % (4.4-11.3); NEUTROPHILS # (AUTO) 7.6 (2.1-6.9); NEUTROPHILS % 55.6 % (38.7-80.0); PLATELET COUNT 508 x10e3/uL (140-360); RED BLOOD COUNT 3.87 x10e6/uL (4.3-5.7); RED CELL DISTRIBUTION WIDTH 14.4 % (11.7-14.4)
[2021-08-23 12:31] LABS: ANION GAP 14.6 mmol/L (8-16); CREATININE, SERUM 1.13 mg/dL (0.72-1.25); POTASSIUM 4.6 mmol/L (3.5-5.1)
[2021-08-23] MEDS: ACETAMINOPHEN 325 MG TAB PO PRN (19:38)
[2021-08-23 20:00] VITALS: BP 124/67
[2021-08-23 21:00] VITALS: BP 124/67
[2021-08-23] MEDS: BISACODYL 5 MG TAB EC PO PRN (21:48)
[2021-08-24] VITALS (9 sets, daily range): BP systolic 128–155; BP diastolic 52–79
[2021-08-24] MEDS: CLINDAMYCIN PHOS 900MG/ 50ML 50 ML IV SCH ×5 (00:45→23:05)
[2021-08-24] MEDS: Morphine 4mg Syringe 4 MG/ML INJ IV PRN ×6 (01:28→23:04)
[2021-08-24] MEDS: LINEZOLID 600 MG/D5W 300ML 300 ML IV SCH (02:38)
[2021-08-24] MEDS: ACETAMINOPHEN 325 MG TAB PO PRN ×3 (04:59→19:41)
[2021-08-24] MEDS: CEFEPIME 2 GM in SODIUM CHLORIDE 0.9% 100 ML IV SCH ×2 (05:05→13:24)
[2021-08-24] MEDS: MUPIROCIN 2% OINT 22 GM TUBE TOP SCH (08:33)
[2021-08-25] VITALS (8 sets, daily range): BP systolic 120–152; BP diastolic 66–80
[2021-08-25] MEDS: Morphine 4mg Syringe 4 MG/ML INJ IV PRN ×5 (03:37→20:41)
[2021-08-25] MEDS: CLINDAMYCIN PHOS 900MG/ 50ML 50 ML IV SCH ×3 (05:56→17:30)
[2021-08-25] MEDS: CEFEPIME 1 GM in SODIUM CHLORIDE 0.9% 50ML 50 ML IV SCH (20:41)
[2021-08-26] VITALS (8 sets, daily range): BP systolic 123–148; BP diastolic 66–83
[2021-08-26] MEDS: CLINDAMYCIN PHOS 900MG/ 50ML 50 ML IV SCH ×4 (00:17→16:58)
[2021-08-26 00:30] LABS: BASOPHILS # (AUTO) 0.3 (0.0-0.1); BASOPHILS % 1.9 % (0.0-1.0); EOSINOPHILS # (AUTO) 0.2 (0.0-0.4); EOSINOPHILS % 1.5 % (0.0-6.0); HEMATOCRIT 36.2 % (38.2-49.6); HEMOGLOBIN 11.1 g/dL (14.0-18.0); LYMPHOCYTES # (AUTO) 3.1 (1.0-3.2); LYMPHOCYTES % 21.5 % (18.0-39.1); MEAN CORPUSCULAR HGB CONC 30.7 g/dL (31-35); MEAN CORPUSCULAR VOLUME 94.5 fL (81-99); MONOCYTES # (AUTO) 1.5 (0.2-0.8); MONOCYTES % 10.3 % (4.4-11.3); NEUTROPHILS # (AUTO) 7.2 (2.1-6.9); PLATELET COUNT 537 x10e3/uL (140-360); RED BLOOD COUNT 3.83 x10e6/uL (4.3-5.7); RED CELL DISTRIBUTION WIDTH 14.5 % (11.7-14.4)
[2021-08-26] MEDS: Morphine 4mg Syringe 4 MG/ML INJ IV PRN ×4 (05:30→20:10)
[2021-08-26 07:08] LABS: BASOPHILS # (AUTO) 0.3 (0.0-0.1); BASOPHILS % 1.9 % (0.0-1.0); EOSINOPHILS # (AUTO) 0.2 (0.0-0.4); EOSINOPHILS % 1.5 % (0.0-6.0); HEMATOCRIT 33.2 % (38.2-49.6); HEMOGLOBIN 10.3 g/dL (14.0-18.0); MEAN CORPUSCULAR HEMOGLOBIN 29.3 pg (28-32); MEAN CORPUSCULAR VOLUME 94.6 fL (81-99); MONOCYTES # (AUTO) 1.5 (0.2-0.8); MONOCYTES % 11.2 % (4.4-11.3); NEUTROPHILS # (AUTO) 6.3 (2.1-6.9); NEUTROPHILS % 46.6 % (38.7-80.0); PLATELET COUNT 460 x10e3/uL (140-360); RED BLOOD COUNT 3.51 x10e6/uL (4.3-5.7); RED CELL DISTRIBUTION WIDTH 14.5 % (11.7-14.4)
[2021-08-26 07:23] LABS: ANION GAP 12.4 mmol/L (8-16); CALCIUM 8.7 mg/dL (8.4-10.2); CREATININE, SERUM 1.1 mg/dL (0.72-1.25); POTASSIUM 4.4 mmol/L (3.5-5.1)
[2021-08-26 08:00] LABS: BAND NEUTROPHILS % (MANUAL) 1 %; EOSINOPHILS % (MANUAL) 2 % (0-7); LYMPHOCYTES % (MANUAL) 25 % (19-48); MONOCYTES % (MANUAL) 11 % (3.4-9.0); MYELOCYTES % (MANUAL) 7 % (0-0); NEUTROPHILS % (MANUAL) 53 % (40-74); PLATELET ESTIMATE SLIGHTLY INCREASED; PLATELET MORPHOLOGY COMMENT NORMAL; RBC MORPHOLOGY COMMENT NORMAL
[2021-08-26] MEDS: CEFEPIME 1 GM in SODIUM CHLORIDE 0.9% 50ML 50 ML IV SCH ×2 (08:39→20:10)
[2021-08-26] MEDS: FUROSEMIDE 20 MG TAB PO SCH (08:39)
[2021-08-26] MEDS ORDERED: TRAMADOL HCL 50 MG TAB PO PRN (16:15)
[2021-08-27] VITALS (8 sets, daily range): BP systolic 127–158; BP diastolic 60–78
[2021-08-27] MEDS: Morphine 4mg Syringe 4 MG/ML INJ IV PRN ×6 (00:10→20:40)
[2021-08-27] MEDS: CLINDAMYCIN PHOS 900MG/ 50ML 50 ML IV SCH ×4 (00:15→16:23)
[2021-08-27] MEDS: FUROSEMIDE 20 MG TAB PO SCH (08:29)
[2021-08-27] MEDS: CEFEPIME 1 GM in SODIUM CHLORIDE 0.9% 50ML 50 ML IV SCH ×2 (08:29→20:40)
[2021-08-28] MEDS: Morphine 4mg Syringe 4 MG/ML INJ IV PRN ×3 (00:45→09:10)
[2021-08-28] MEDS: CLINDAMYCIN PHOS 900MG/ 50ML 50 ML IV SCH ×3 (00:51→12:54)
[2021-08-28 01:03] VITALS: BP 161/67
[2021-08-28 05:53] VITALS: BP 129/66
[2021-08-28 08:19] VITALS: BP 131/92
[2021-08-28] MEDS ORDERED: ONDANSETRON HCL 4 MG ORAL DISINTEGRATING TAB PO PRN (08:45)
[2021-08-28 08:47] VITALS: BP 131/92
[2021-08-28] MEDS: FUROSEMIDE 20 MG TAB PO SCH (09:09)
[2021-08-28] MEDS: CEFEPIME 1 GM in SODIUM CHLORIDE 0.9% 50ML 50 ML IV SCH (09:09)
[2021-08-28] MEDS ORDERED: CLINDAMYCIN HC150 MG PO (14:18)
[2021-08-28] MEDS ORDERED: FUROSEMIDE20 MG PO (14:18)
== END 2021-08-28 15:40 | disposition home or self-care (01) | DRG 872 ==
LOC: ER 20:23 → ERHOLD 22:24 → MED/SURG2 23:35
PROVIDERS: ADMIT Internal Medicine; ATTEND Internal Medicine
PROC: 02HV33Z Insertion of Infusion Device into Superior Vena Cava, Percutaneous Approach (ICD-10-PCS; 2021-08-13)
PROC: 0J9P0ZZ Drainage of Left Lower Leg Subcutaneous Tissue and Fascia, Open Approach (ICD-10-PCS; principal; 2021-08-20 09:00)
DX: A41.9 Sepsis, unspecified organism (principal); L03.115 Cellulitis of right lower limb; Z68.43 Body mass index [BMI] 50.0-59.9, adult; L03.116 Cellulitis of left lower limb; N17.9 Acute kidney failure, unspecified; E87.1 Hypo-osmolality and hyponatremia; E87.2 Acidosis; E87.3 Alkalosis; Z88.5 Allergy status to narcotic agent; Z88.0 Allergy status to penicillin; Z88.8 Allergy status to other drugs, medicaments and biological substances; E66.01 Morbid (severe) obesity due to excess calories; Z20.822 Contact with and (suspected) exposure to COVID-19; G40.909 Epilepsy, unspecified, not intractable, without status epilepticus; Z72.0 Tobacco use; R65.20 Severe sepsis without septic shock; N18.9 Chronic kidney disease, unspecified; E86.1 Hypovolemia; R09.02 Hypoxemia; E83.42 Hypomagnesemia; T50.1X5A Adverse effect of loop [high-ceiling] diuretics, initial encounter; G47.33 Obstructive sleep apnea (adult) (pediatric); I80.3 Phlebitis and thrombophlebitis of lower extremities, unspecified; D64.9 Anemia, unspecified
CPT/HCPCS: 36415; 36569; 36600; 71045; 74176; 76770; 80048; 80053; 81001; 82044; 82550; 82553; 82570; 82805; 82948; 83605; 83735; 83880; 83935; 84100; 84133; 84156; 84300; 84484; 85025; 87040; 87071; 87075; 87086; 87205; 93005; 93306; 93925; 93970; 94660; 94799; 97139; 99251; 99284; J0692; J1100; J1650; J1940; J2001; J2020; J2250; J2270; J2405; J2543; J2997; J3010; J3370; J7050; Q9967; U0002

== ENCOUNTER 2023-02-19 14:37 | Emergency (ER) | payer MEDICARE ==
[~2023-02-19] VITALS: Ht 175.3 cm; Wt 159.7 kg
[~2023-02-19 14:37] MED LIST changes: +CLINDAMYCIN HC150 MG PO; +FUROSEMIDE20 MG PO
[2023-02-19 15:36] LABS: BASOPHILS # (AUTO) 0.1 (0.0-0.1); BASOPHILS % 0.8 % (0.0-1.0); EOSINOPHILS # (AUTO) 0.3 (0.0-0.4); EOSINOPHILS % 2.9 % (0.0-6.0); HEMATOCRIT 39.3 % (38.2-49.6); HEMOGLOBIN 12.9 g/dL (14.0-18.0); LYMPHOCYTES # (AUTO) 2.6 (1.0-3.2); LYMPHOCYTES % 23.7 % (18.0-39.1); MEAN CORPUSCULAR HEMOGLOBIN 30.4 pg (28-32); MEAN CORPUSCULAR HGB CONC 32.8 g/dL (31-35); MEAN CORPUSCULAR VOLUME 92.5 fL (81-99); MONOCYTES % 8.7 % (4.4-11.3); NEUTROPHILS # (AUTO) 6.8 (2.1-6.9); NEUTROPHILS % 62.6 % (38.7-80.0); PLATELET COUNT 269 x10e3/uL (140-360); RED BLOOD COUNT 4.25 x10e6/uL (4.3-5.7); RED CELL DISTRIBUTION WIDTH 13.6 % (11.7-14.4)
[2023-02-19 15:38] LABS: CLARITY,URINE SL CLOUDY (CLEAR); COLOR,URINE YELLOW (YELLOW); KETONES,URINE TRACE (NEGATIVE); LEUKOCYTE ESTERASE ,URINE NEGATIVE (NEGATIVE); NITRITE,URINE NEGATIVE (NEGATIVE); PROTEIN,URINE DIPSTICK TRACE (NEGATIVE); URINE UROBILINOGEN 0.2 mg/dL (0.2 - 1)
[2023-02-19 15:48] LABS: ALBUMIN 3.5 g/dL (3.5-5.0); ALBUMIN/GLOBULIN RATIO 0.9 (0.8-2.0); ANION GAP 12.1 mmol/L (8-16); CALCIUM 8.7 mg/dL (8.4-10.2); CREATININE, SERUM 1.18 mg/dL (0.72-1.25); POTASSIUM 4.1 mmol/L (3.5-5.1)
[2023-02-19 15:56] LABS: AMORPHOUS SEDIMENT,URINE MODERATE (FEW); BACTERIA,URINE FEW /HPF; MUCUS,URINE MODERATE (RARE); WBC,URINE (MAN) 0-5 /HPF (0-5)
[2023-02-19] MEDS ORDERED: SODIUM CHLORIDE 0.9% 1000ML 1,000 ML IV STA (16:13)
[2023-02-19] MEDS ORDERED: KETOROLAC TROMETHAMINE 30 MG/ML VIAL IV STA (17:38)
[2023-02-19] MEDS ORDERED: DIAZEPAM 5 MG TAB PO ONE (17:55)
[2023-02-19] MEDS ORDERED: METHOCARBAMOL750 MG PO ×2 (19:05→19:27)
[2023-02-19] MEDS ORDERED: PREDNISONE20 MG PO ×2 (19:05→19:27)
[2023-02-19] MEDS ORDERED: NAPROXEN250 MG PO (19:05)
[2023-02-19 19:27] VITALS: BP 114/89; PULSE 64; RESP 19; TEMP 98.4; O2SAT 100
[2023-02-19] MEDS ORDERED: NAPROSYN500 MG PO (19:27)
== END 2023-02-19 19:30 | disposition home or self-care (01) ==
LOC: ER 15:20
DX: M54.50 Low back pain, unspecified (principal); M62.838 Other muscle spasm; R55 Syncope and collapse
CPT/HCPCS: 36415; 70450; 71045; 72100; 80053; 81001; 84484; 85025; 93005; 99284; J1885; J7030

== ENCOUNTER 2023-03-20 09:09 | Emergency (ER) | payer OTHER ==
[~2023-03-20] VITALS: Ht 175.3 cm; Wt 159.7 kg
[~2023-03-20 09:09] MED LIST changes: +NAPROSYN500 MG PO; +NAPROXEN250 MG PO; +PREDNISONE20 MG PO
[2023-03-20 09:10] VITALS: O2SAT 100
[2023-03-20] MEDS ORDERED: ULTRAM 50MG50 MG PO (09:34)
[2023-03-20] MEDS ORDERED: CIPRO500 MG PO (09:34)
[2023-03-20] MEDS ORDERED: BACTRIM DS TAB1 EACH PO (09:34)
== END 2023-03-20 10:11 | disposition home or self-care (01) ==
LOC: ER 09:15
DX: L03.116 Cellulitis of left lower limb (principal); I10 Essential (primary) hypertension; G40.909 Epilepsy, unspecified, not intractable, without status epilepticus; I25.2 Old myocardial infarction; Z86.73 Personal history of transient ischemic attack (TIA), and cerebral infarction without residual deficits; Z86.718 Personal history of other venous thrombosis and embolism
CPT/HCPCS: 99283